=== PATIENT | male | born 1950 | race Caucasian/White ===

== ENCOUNTER 2018-04-18 05:32 | Day surgery (SDC) | payer MEDICARE, BC ==
[~2018-04-18 05:32] MED LIST: Dextrose 5%-0.45% NaCl 1,000 ML IV SCH; Sodium Chloride 0.9% 10 ML Syringe FLUSH PRN
[2018-04-18] MEDS ORDERED: fentaNYL 100 MCG/2 ML SDV IV ONE ×3 (05:33→06:37)
[2018-04-18] MEDS ORDERED: Midazolam 1 MG/ML 2 ML SDV IV ONE ×7 (05:33→06:42)
[2018-04-18] MEDS ORDERED: Midazolam 1 MG/ML 2 ML SDV ONE (06:22)
[2018-04-18] MEDS ORDERED: fentaNYL 100 MCG/2 ML SDV ONE (06:22)
[2018-04-18 11:22] VITALS: BP 136/67
--- NOTE | 2018-04-18 13:44 | OR ---
DATE: 04/18/2018 PROCEDURE: Total colonoscopy NBI and cold snare polypectomy. INSTRUMENT USED: [id number] Olympus video colonoscope. PREMEDICATIONS: Fentanyl 100 mcg intravenous, Versed 4 mg intravenous. Nasal O2 cannula. The procedure was done under pulse oximetry, BP recording, and alteration hand. INDICATION: Screening colonoscopic examination is done for detection of any polypoid lesions and removal, endoscopic hemostasis therapy if needed. DESCRIPTION OF PROCEDURE: Initial rectal exam showed some anal sphincter spasm. Rigid anoscopy was normal. The colonoscope was passed with ease up to the ileocecal area, photographs were taken of the cecum. Identified by landmarks of appendiceal orifice and double- bulged ileocecal folds. Numerous scattered diverticula were noted. No bleeding was noted from any of the visualized areas at the commencement of the examination. The bowel preparation was noted to the adequate, [place] scale 2. No stricture. No vascular ectasia. No large isolated ulcerations seen. No evidence of diffuse inflammatory bowel disease in the form of friability, contact bleeding, or ulcerations. In the area of hepatic flexure, diminutive benign-appearing polyp was noted, NBI views were obtained. Photographs were taken. Cold snare polypectomy was done, the tissue was retrieved and sent for histopathology. Probing the proximal sides of folds and flexures, using adequate distention and clearing up the stool material, withdrawal of the scope was made. No bleeding was noted from any of the visualized areas at the completion of examination. IMPRESSION: 1. Diverticulosis. 2. Hepatic flexure polyp. The patient tolerated the procedure well. [facility] /[id number]
== END 2018-04-18 09:09 | disposition home or self-care (01) ==
LOC: DL.ENDO 05:32
PROVIDERS: ATTEND Internal Medicine Gastroenterology
DX: Z12.11 Encounter for screening for malignant neoplasm of colon (principal); D12.3 Benign neoplasm of transverse colon; K57.30 Diverticulosis of large intestine without perforation or abscess without bleeding
CPT/HCPCS: J2250; J3010; J7042

== ENCOUNTER → 2018-07-14 | Outpatient (CLI) | payer MEDICARE, BC ==
--- NOTE | 2018-07-15 08:07 | MR ---
CLINICAL HISTORY: 67-year-old 150 pound male with neck pain and "radiculopathy". SCAN TECHNIQUE: Sagittal T1/T2/STIR and unenhanced axial MR images of the cervical and upper thoracic spine obtained with the patient lying supine on the [employer] 1[employer] magnet [place], [place]. All data archived in the PACS system for storage, reformatting and study. INTERPRETATION: Abnormal. 1. Signs of chronic multilevel disc degeneration with large central disc-osteophyte complex encroaching posteriorly, midline at the C3-4 level, contributing to some focal upper cervical spinal canal stenosis at this C3-4 level. 2. Similar large disc-osteophyte complex encroaching, paracentrally on the right, at the C5-6 level (lower spinal canal stenosis). 3. Reactive hypertrophic arthritic changes posterior articulating facets upper and lower cervical spine. 4. No sign of pathologic skeletal lesion, cervical fracture or dislocation. Marginal spondylosis anteriorly C5-6 level. 5. The first 5 thoracic vertebra are normal height and alignment. No pathologic skeletal lesion, thoracic fracture or spondylolisthesis. Unenhanced cervical/upper thoracic spinal cord unremarkable. No intracanalicular soft tissue tumor mass. CONCLUSION: Chronic multilevel cervical disc disease with hypertrophic reactive arthritic changes contributing to a relative upper and lower cervical spinal canal stenosis (C3-4 and C5-6). Large osteophyte asymmetrically encroaching C5-6, on right.
== END ==
LOC: DL.MRI 09:40
PROVIDERS: ATTEND Nurse Practitioner
DX: M54.2 Cervicalgia (principal); R53.1 Weakness; M50.80 Other cervical disc disorders, unspecified cervical region; M47.816 Spondylosis without myelopathy or radiculopathy, lumbar region; M48.02 Spinal stenosis, cervical region; M25.78 Osteophyte, vertebrae
CPT/HCPCS: 72141